=== PATIENT | female | born 1965 | race Caucasian/White ===

== ENCOUNTER → 2017-10-01 | Outpatient (CLI) | payer OTHER ==
[~2017-10-01] MED LIST: ACYCLOVIR; AMBIEN 10 MG TA10 MG PO; AMBIEN 5 MG TABL5 M1 PO; AUGMENTIN 875875 MG PO; BENADRYL25 MG PO; BENTYL 20 MG TA20 M1 PO; CIPRO500 MG PO; CLONAZEPAM; CLONAZEPAM 1 MG1 M1 PO; DELSYM COU30 MG/5 M1 PO; DICLOFENAC SOD50 M1 PO; DOLOPHINE HCL10 MG PO; FLAGYL500 MG PO; HYDROCODON-ACE1 EA11 PO; HYDROCODON-ACE1 EAC7 PO; HYDROCODONE-AP1 EAC6 PO; HYDROXYZINE HCL25 M1; KEFLEX500 MG PO; KLONOPIN0.5 MG PO; LIDODERM 5%1 PATC1 TOP; MACROBID 100 M100 M2 PO; MIRALAX17 G1 PO; MS CONTIN 30 MG30 M1 GT; NORCO 10-325 T1 EACH PO; NORCO 5-325 TA1 EACH PO; ONDANSETRON HCL4 M2 PO; PAXIL10 MG; PERCOCET 5-3251 EACH PO; PERCOCET 7.5-31 EACH PO; PERCOCET PO; PREDNISONE 10 M10 MG PO; PREDNISONE 20 M20 M1 PO; PREDNISONE 20 M20 MG PO; PYRIDIUM200 MG PO; RESTORIL15 MG PO; RESTORIL30 MG PO; ROBAXIN 750 MG750 M1 PO; SEROQUEL 100 M100 MG; SEROQUEL 25 MG25 M1 PO; SEROQUEL 50 MG50 MG PO; TESSALON PERLE100 MG PO; TRAMADOL 50 MG50 MG PO; TYLENOL325 MG PO; VENTOLIN HFA 1818 GM INH; ZANAFLEX4 MG; ZANAFLEX4 MG PO; ZOFRAN ODT4 MG PO; ZOFRAN ODT4 MG SUBLING; ZPAK PO; [UNRECOGNIZED DRUG - OTHER]
== END ==
LOC: M.RAD 16:02
DX: R06.02 Shortness of breath (principal); R07.1 Chest pain on breathing

== ENCOUNTER 2019-03-29 15:00 | Emergency (ER) | payer OTHER ==
[~2019-03-29] VITALS: Ht 165.1 cm; Wt 77.1 kg
[2019-03-29 16:21] VITALS: BP 184/100
== END 2019-03-29 16:21 | disposition home or self-care (01) ==
LOC: M.ERS 15:00
DX: G43.909 Migraine, unspecified, not intractable, without status migrainosus (principal); F32.9 Major depressive disorder, single episode, unspecified; F17.210 Nicotine dependence, cigarettes, uncomplicated; Z87.01 Personal history of pneumonia (recurrent); Z98.890 Other specified postprocedural states; Z88.0 Allergy status to penicillin; Z88.2 Allergy status to sulfonamides; Z88.6 Allergy status to analgesic agent; Z90.5 Acquired absence of kidney; Z90.49 Acquired absence of other specified parts of digestive tract; Z90.710 Acquired absence of both cervix and uterus; Z88.8 Allergy status to other drugs, medicaments and biological substances; Z88.7 Allergy status to serum and vaccine

== ENCOUNTER → 2019-03-31 | Outpatient (CLI) | payer OTHER | LOC: M.CT 16:25 | DX: G95.0 Syringomyelia and syringobulbia (principal); H53.9 Unspecified visual disturbance ==

== ENCOUNTER → 2019-06-05 | Outpatient (CLI) | payer OTHER ==
[~2019-06-05] MED LIST changes: +DORYX MPC120 MG PO; +KEFLEX500 M2 PO; +PREDNISOLONE 5 M5 M1 PO; +QUETIAPINE FUM100 MG PO; +XARELTO15 MG PO
== END ==
LOC: M.RAD 12:57
DX: R05 Cough (principal); R06.00 Dyspnea, unspecified; M25.511 Pain in right shoulder

== ENCOUNTER 2019-06-06 13:29 | Emergency (ER) | payer OTHER ==
[~2019-06-06] VITALS: Ht 165.1 cm; Wt 77.1 kg
[~2019-06-06 13:29] MED LIST changes: -DORYX MPC120 MG PO; -KEFLEX500 M2 PO; -PREDNISOLONE 5 M5 M1 PO; -QUETIAPINE FUM100 MG PO; -XARELTO15 MG PO
[2019-06-06] MEDS ORDERED: QUETIAPINE FUM100 MG PO (13:50)
[2019-06-06] MEDS ORDERED: PREDNISOLONE 5 M5 M1 PO (13:52)
[2019-06-06] MEDS ORDERED: DORYX MPC120 MG PO (13:53)
[2019-06-06 14:37] LABS: HEMOGLOBIN 13.4 gm/dL (12.0-15.0); MCH 33.2 pg (26.0-34.0); MCHC 35.3 g/dL (28.0-37.0); MCV 94.2 fL (80.0-100.0); MPV 9.4 fl. (7.2-11.1); NUCLEATED RBCS 0 /100WBC; PLATELET COUNT* 250 thou/uL (150-400); RBC 4.03 mil/uL (4.20-5.00); RDW-CV 12.4 % (10.5-14.5); WBC 15.9 thou/uL (4.0-11.0)
[2019-06-06 14:47] LABS: CALCIUM 9.1 mg/dL (8.5-10.1); CREATININE 1.4 mg/dL (0.6-1.3); POTASSIUM 3.8 mmol/L (3.5-5.1)
[2019-06-06 14:52] LABS: ALBUMIN 3.4 g/dL (3.4-5.0); TOTAL BILIRUBIN 0.2 mg/dL (<0.1-1.0)
[2019-06-06 14:54] LABS: ABSOLUTE LYMPHOCYTES 1.3 thou/uL (0.8-5.3); ABSOLUTE MONOCYTES 0.3 thou/uL (0.0-1.2); ABSOLUTE NEUTROPHILS 14.3 thou/uL (1.6-8.1); PLATELET ESTIMATE ADEQUATE
[2019-06-06 16:08] LABS: URINE BILIRUBIN NEGATIVE (Negative); URINE BLOOD 3+ (Negative); URINE CLARITY CLEAR; URINE COLOR YELLOW; URINE GLUCOSE-RANDOM NEGATIVE (Negative); URINE KETONES NEGATIVE (Negative); URINE LEUKOCYTES-REFLEX NEGATIVE (Negative); URINE NITRITE-REFLEX POSITIVE (Negative); URINE PROTEIN 2+ (Negative); URINE SPECIFIC GRAVITY 1.015 (1.005-1.030); URINE UROBILINOGEN 0.2 E.U./dl (0.2-1.0)
[2019-06-06 16:17] LABS: SQUAMOUS >10 Many /LPF (0-3)
[2019-06-06 16:18] LABS: BACTERIA-REFLEX >30 Many /HPF (None Seen); MUCUS None Seen strn/LPF (None Seen)
[2019-06-06 16:19] LABS: CRYSTALS None Seen /LPF (None Seen); HYALINE CASTS 0-3 Few /LPF (None Seen); URINE WBC-REFLEX 6-15 Few /HPF (0-5)
[2019-06-06 17:05] LABS: INFLUENZA A ANTIGEN Negative (Negative); INFLUENZA B ANTIGEN Negative (Negative)
[2019-06-06] MEDS ORDERED: XARELTO15 MG PO (20:24)
[2019-06-06] MEDS ORDERED: KEFLEX500 M2 PO (20:29)
[2019-06-06 20:47] LABS: PROTIME 10.3 Seconds (9.20-11.50)
[2019-06-06 21:09] VITALS: BP 188/116
--- NOTE | 2019-06-08 15:03 | EKG ---
[place] [address] ELECTROCARDIOGRAM REPORT Name: RAIZA FENTONYN BARBARA Room: [facility]#: [id number] Admission: 06/06/19 Attend Phys: Discharge: 06/06/19 Date of : 61 Report #: [id number] THIS REPORT FOR: //name// [facility] ED Test Date: 2019-06-06 Test Time: 14:55:03 Pat Name: SATISH FENTON Department: Room: Gender: F Business Development Officer: [facility] : 1965 Requested By: Regina Crump Order Number: [id number] MD: Fran Samuels Measurements Intervals [place] Rate: 94 P: 40 NH: 167 QRS: 52 QRSD: 96 T: 12 QT: 347 QTc: 434 Interpretive Statements Sinus rhythm Borderline T abnormalities, anterior leads Baseline wander in lead(s) V1 Compared to ECG 07/03/2015 14:23:00 no change Electronically Signed On 06-08-2019 15:03:02 METAL BONDING ASSEMBLER by Fran Samuels [email or web address] <ELECTRONICALLY SIGNED> By: Fran Samuels MD, [facility] 06/08/19 1503 1455 1455 Fran Samuels MD, [facility] /EPI
== END 2019-06-06 21:13 | disposition home or self-care (01) ==
LOC: M.ERS 13:29
PROVIDERS: Nurse Practitioner Family
DX: I26.99 Other pulmonary embolism without acute cor pulmonale (principal); M79.662 Pain in left lower leg; M79.661 Pain in right lower leg; N39.0 Urinary tract infection, site not specified; F32.9 Major depressive disorder, single episode, unspecified; F17.210 Nicotine dependence, cigarettes, uncomplicated; Z88.2 Allergy status to sulfonamides; Z88.0 Allergy status to penicillin; Z88.6 Allergy status to analgesic agent; Z88.8 Allergy status to other drugs, medicaments and biological substances; Z90.710 Acquired absence of both cervix and uterus; Z87.01 Personal history of pneumonia (recurrent); Z98.890 Other specified postprocedural states

== ENCOUNTER → 2019-07-02 | Outpatient (CLI) | payer OTHER ==
[~2019-07-02] MED LIST changes: +DORYX MPC120 MG PO; +KEFLEX500 M2 PO; +PREDNISOLONE 5 M5 M1 PO; +QUETIAPINE FUM100 MG PO; +XARELTO15 MG PO
[2019-07-02 11:43] LABS: ABSOLUTE BASOPHILS 0.1 thou/uL (0.0-0.2); ABSOLUTE EOSINOPHILS 0.3 thou/uL (0.0-0.7); ABSOLUTE LYMPHOCYTES 1.3 thou/uL (0.8-5.3); ABSOLUTE MONOCYTES 0.4 thou/uL (0.0-1.2); ABSOLUTE NEUTROPHILS 5.2 thou/uL (1.6-8.1); BASOPHILS 0.8 %; EOSINOPHILS 4.2 %; HEMATOCRIT 37.5 % (37.0-47.0); HEMOGLOBIN 12.9 gm/dL (12.0-15.0); LYMPHOCYTES 17.7 %; MCH 32.9 pg (26.0-34.0); MCHC 34.4 g/dL (28.0-37.0); MCV 95.6 fL (80.0-100.0); MONOCYTES 6.2 %; MPV 8.8 fl. (7.2-11.1); NUCLEATED RBCS 0 /100WBC; PLATELET COUNT* 239 thou/uL (150-400); POLYS 71.1 %; RBC 3.93 mil/uL (4.20-5.00); WBC 7.3 thou/uL (4.0-11.0)
[2019-07-02 11:55] LABS: ALBUMIN 3.3 g/dL (3.4-5.0); CALCIUM 8.8 mg/dL (8.5-10.1); CREATININE 1.5 mg/dL (0.6-1.3); MAGNESIUM 2.1 mg/dL (1.8-2.4); POTASSIUM 4.3 mmol/L (3.5-5.1); TOTAL BILIRUBIN 0.2 mg/dL (<0.1-1.0); TOTAL PROTEIN 6.6 g/dL (6.4-8.2)
== END ==
LOC: M.MRI 11:08 → M.LAB 11:08 → M.MRI 11:30
PROVIDERS: Internal Medicine
DX: E03.9 Hypothyroidism, unspecified (principal); G95.0 Syringomyelia and syringobulbia; G89.4 Chronic pain syndrome; R41.82 Altered mental status, unspecified; Z86.59 Personal history of other mental and behavioral disorders; Z88.0 Allergy status to penicillin; Z88.2 Allergy status to sulfonamides; Z88.8 Allergy status to other drugs, medicaments and biological substances

== ENCOUNTER → 2019-07-07 | Outpatient (CLI) | payer OTHER ==
--- NOTE | 2019-07-07 13:29 | 2DMMODE ---
[place] [address] 2 D/M-MODE ECHOCARDIOGRAM Name: FENTONSATISH Room: [facility]#: [id number] Admission: 07/07/19 Attend Phys: Fran Kelly, Discharge: Date of : 61 Date of Service: 07/07/19 1328 Report #: [id number] THIS REPORT FOR: //name// APPROVED REPORT Study performed: 07/07/2019 07:57:31 EXAM: Comprehensive 2D, Doppler, and color-flow Echocardiogram Patient Location: Out-Patient BSA: 1.91 HR: 93 bpm BP: 125/82 mmHg Other Information Study Quality: Good Indications Dyspnea Palpitations 2D Dimensions IVSd: 11.10 (7-11mm) LVOT Diam: 20.20 (18-24mm) LVDd: 40.24 mm PWd: 9.87 (7-11mm) Ascending Ao: 30.05 (22-36mm) LVDs: 20.32 (25-40mm) Aortic Root: 22.77 mm Volumes Left Atrial Volume (Systole) LA ESV Index: 12.30 mL/m2 Aortic Valve AoV Peak Donovan.: 1.36 m/s AO Peak Gr.: 7.36 mmHg LVOT Max P.99 mmHg AO Mean Gr.: 3.46 mmHg LVOT Mean P.45 mmHg LVOT Max V: 1.22 m/s AO V2 VTI: 21.27 cm LVOT Mean V: 0.69 m/s PATTI (VTI): 3.29 cm2 LVOT V1 VTI: 21.84 cm Mitral Valve E/A Ratio: 0.76 MV Decel. Time: 167.83 ms MV E Max Donovan.: 0.56 m/s MV PHT: 48.67 [place] [address] 2 D/M-MODE ECHOCARDIOGRAM Name: SATISH FENTON Room: [facility]#: [id number] Admission: 07/07/19 Attend Phys: Fran Kelly, Discharge: Date of : 61 Date of Service: 07/07/19 1328 Report #: [id number] MVA (PHT): 4.52 cm2 TDI E/Lateral E': 6.22 E/Medial E': 8.00 Medial E' Donovan.: 0.07 m/s Lateral E' Donovan.: 0.09 m/s Pulmonary Valve PV Peak Donovan.: 0.92 m/s PV Peak Gr.: 3.36 mmHg Tricuspid Valve RAP Estimate: 5.00 mmHg TR Peak Gr.: 18.30 mmHg RVSP: 23.30 mmHg PA Pressure: 23.30 mmHg Left Ventricle The left ventricle is normal size. There is normal LV segmental wall motion. There is normal left ventricular wall thickness. Left ventricular systolic function is vigorous. LVEF is >70%. Grade I - abnormal relaxation pattern. Right Ventricle The right ventricle is normal size. The right ventricular systolic function is normal. Atria The left atrium size is normal. The right atrium size is normal. Aortic Valve The aortic valve is normal in structure. No aortic regurgitation is present. There is no aortic valvular stenosis. Mitral Valve The mitral valve is normal in structure. There is no mitral valve regurgitation noted. No evidence of mitral valve stenosis. Tricuspid Valve The tricuspid valve is normal in structure. Trace to mild tricuspid regurgitation. No pulmonary hypertension. Pulmonic Valve The pulmonary valve is normal in structure. There is no pulmonic valvular regurgitation[place] [address] 2 D/M-MODE ECHOCARDIOGRAM Name: SATISH FENTON BARBARA Room: [facility]#: [id number] Admission: 07/07/19 Attend Phys: Fran Kelly, Discharge: Date of : 61 Date of Service: 07/07/19 1328 Report #: [id number] The aortic root is normal in size. IVC is normal in size and collapses >50% with inspiration. Pericardium There is no pericardial effusion. <Conclusion> Normal echocardiogram. The left ventricle is normal size. There is normal left ventricular wall thickness. Left ventricular systolic function is vigorous. LVEF is >70%. Grade I - abnormal relaxation pattern. Trace to mild tricuspid regurgitation. No pulmonary hypertension. IVC is normal in size and collapses >50% with inspiration. <ELECTRONICALLY SIGNED> By: Michael Stokes MD, FACC 07/07/19 1328 1328 Michael Stokes MD, FACC /INF
== END ==
LOC: M.CRD 07:37 → M.CT 08:00
DX: I36.1 Nonrheumatic tricuspid (valve) insufficiency (principal); K42.9 Umbilical hernia without obstruction or gangrene; G89.4 Chronic pain syndrome; E03.9 Hypothyroidism, unspecified; I25.10 Atherosclerotic heart disease of native coronary artery without angina pectoris; M25.78 Osteophyte, vertebrae; Z90.49 Acquired absence of other specified parts of digestive tract; Z88.8 Allergy status to other drugs, medicaments and biological substances; Z88.2 Allergy status to sulfonamides

== ENCOUNTER → 2019-08-26 | Outpatient (CLI) | payer OTHER ==
--- NOTE | 2019-08-26 17:00 | CARDNUC ---
[place] [address] CARDIAC NUCLEAR IMAGING REPORT Name: JOSSYSATISH BARBARA Room: [facility]#: [id number] Admission: 08/26/19 Attend Phys: Fran Kelly, Discharge: Date of : 61 Date of Service: 08/26/19 1659 Report #: [id number] THIS REPORT FOR: //name// APPROVED REPORT Imaging Protocol: Rest Tc-99m/Stress Tc-99m 1 day Study performed: 08/26/2019 12:15:00 Indication: Chest pain, Palpitations Patient Location: Out-Patient Stress Tech: Onelia Fritz Stress Nurse: Nancy Baptiste RN NM Tech:NANY Laurent Ht: 5 ft 5 in Wt: 180 lbs BSA: 1.89 m2 BMI: 29.95 Medical History Medical History: Stroke/TIA, HTN, CAD s/p LA Medications: amlodipine, clonidine, losartan, xarelto Allergies: xanax, carbamazepine, influenza vaccine, chlorpromazine, haldol, valproic acid, lithium, resporal, steroids, penicillin, prednisone, pregablin, sulfa Cardiac Risk Factors: age, htn, former smoker, Exercise History: Physically active Resting Data Rest SPECT myocardial perfusion imaging was performed in supine position 30 minutes following the intravenous injection of 11.2 mCi of Tc-99m Sestamibi. Time of rest injection: 1300 Date: 08/26/2019 The images were gated to evaluate regional wall motion and calculate left ventricular ejection fraction. Administration Route: IV Administration Site: Right Arm Pharmacologic Stress Pharmacologic stress test was performed by injecting Regadenoson 0.4 mg IV push over 10-15 seconds immediately followed by the intravenous injection of 33.5 mCi of Tc-99m Sestamibi. Time of stress injection: 1410 Date: 08/26/2019 Administration Route: IV Administration Site: Right Arm Gated Stress SPECT was performed 40 minutes [place] [address] CARDIAC NUCLEAR IMAGING REPORT Name: SATISH FENTON Room: [facility]#: [id number] Admission: 08/26/19 Attend Phys: Fran Kelly, Discharge: Date of : 61 Date of Service: 08/26/19 1659 Report #: [id number] The images were gated to evaluate regional wall motion and calculate left ventricular ejection fraction. Prone imaging was performed. Stress Test Details Stress Test: Pharmacologic stress testing performed using 0.4 mg of regadenoson per 5 mL given IV over 10 seconds. Reason for pharmacologic stress test: physical limitation. HR Max Heart Rate (APMHR): 164 bpm Resting HR: 101 bpm Target HR (85% APMHR): 139 bpm Max HR Achieved: 120 bpm % of APMHR: 73 Recovery HR: 115 bpm BP Resting BP: 165/112 mmHg Max BP: 154/81 mmHg Recovery BP: 163/87 mmHg ECG Resting ECG: Sinus Rhythm Stress ECG: Sinus Tachycardia ST Change: None Arrhythmia: None Recovery ECG: Sinus Rhythm Recovery ST Change: None Recovery Arrhythmia: None Clinical Reason for Termination: Completed protocol Exercise duration: 0 min sec Exercise capacity: 1 METs The patient tolerated Lexiscan infusion without significant cardiac symptoms. Nurse Comments pt too unsteady on feet to walk treadmill Stress ECG Conclusion Baseline 12-lead EKG shows sinus rhythm without significant ST segment abnormality. EKGs during and post Lexiscan infusion showed sinus rhythm and sinus tachycardia withST segment changes when compared to baseline. There were no significant stress-induced [place] [address] CARDIAC NUCLEAR IMAGING REPORT Name: SATISH FENTON BARBARA Room: [facility]#: [id number] Admission: 08/26/19 Attend Phys: Fran Kelly, Discharge: Date of : 61 Date of Service: 08/26/19 1659 Report #: [id number] Study: Good Artifact: No artifact Study Data At rest, the left ventricular ejection fraction was 75%.. Post stress, the left ventricular ejection was 81%.. TID = 1.04. Perfusion Normal left ventricular perfusion. Wall Motion Normal left ventricular wall motion. Nuclear Conclusion ECG Findings: negative for ischemia Clinical Findings: negative for ischemia Nuclear Findings: negative for ischemia Exercise Capacity: not assessed Left Ventricular Function: normal Risk Study: low Myocardial perfusion images obtained at rest and post Lasix Infusion show uniform uptake of the radioisotope throughout the myocardium without defect. Global LV systolic function normal on gated studies. This is a low risk study. <Conclusion> Baseline 12-lead EKG shows sinus rhythm without significant ST segment abnormality. EKGs during and post Lexiscan infusion showed sinus rhythm and sinus tachycardia withST segment changes when compared to baseline. There were no significant stress-induced arrhythmias. <ELECTRONICALLY SIGNED> By: Michael Stokes MD, FACC 08/26/191658 58 58 Michael Stokes MD, FACC /INF
== END ==
LOC: M.NUC 08-03 10:17 → M.CRD 08-14 13:00 → M.NUC 12:16
DX: R07.89 Other chest pain (principal); I10 Essential (primary) hypertension; I25.2 Old myocardial infarction; Z79.899 Other long term (current) drug therapy

== ENCOUNTER → 2019-10-13 | Outpatient (CLI) | payer OTHER | LOC: M.ULTRA 08:48 | DX: I10 Essential (primary) hypertension (principal); Z88.0 Allergy status to penicillin; Z88.2 Allergy status to sulfonamides; Z88.5 Allergy status to narcotic agent; Z88.8 Allergy status to other drugs, medicaments and biological substances; Z90.5 Acquired absence of kidney ==

== ENCOUNTER 2019-11-15 15:56 | Observation (INO) | payer OTHER ==
[~2019-11-15] VITALS: Ht 165.1 cm; Wt 84.8 kg
[2019-11-15 15:59] VITALS: BP 141/78
[2019-11-15] MEDS ORDERED: CLONIDINE HCL0.2 M2 PO (16:05)
[2019-11-15] MEDS ORDERED: COZAAR 50 MG TA50 M1 PO (16:05)
[2019-11-15 16:32] LABS: ABSOLUTE BASOPHILS 0.1 thou/uL (0.0-0.2); ABSOLUTE EOSINOPHILS 0.2 thou/uL (0.0-0.7); ABSOLUTE LYMPHOCYTES 1.5 thou/uL (0.8-5.3); ABSOLUTE MONOCYTES 0.4 thou/uL (0.0-1.2); ABSOLUTE NEUTROPHILS 4.2 thou/uL (1.6-8.1); BASOPHILS 1.2 %; EOSINOPHILS 2.4 %; HEMOGLOBIN 10.9 gm/dL (12.0-15.0); LYMPHOCYTES 23.6 %; MCH 33.4 pg (26.0-34.0); MCV 95.5 fL (80.0-100.0); MONOCYTES 6.6 %; MPV 8.8 fl. (7.2-11.1); NUCLEATED RBCS 0 /100WBC; PLATELET COUNT* 253 thou/uL (150-400); POLYS 66.2 %; RBC 3.25 mil/uL (4.20-5.00); RDW-CV 13.4 % (10.5-14.5); WBC 6.4 thou/uL (4.0-11.0)
[2019-11-15 16:39] LABS: CALCIUM 8.9 mg/dL (8.5-10.1); CREATININE 2.2 mg/dL (0.6-1.3); POTASSIUM 3.6 mmol/L (3.5-5.1)
[2019-11-15 16:49] LABS: ALBUMIN 3.7 g/dL (3.4-5.0); MAGNESIUM 2.3 mg/dL (1.8-2.4); TOTAL BILIRUBIN 0.2 mg/dL (<0.1-1.0); TOTAL PROTEIN 7.4 g/dL (6.4-8.2)
[2019-11-15] MEDS ORDERED: XARELTO20 MG PO (18:29)
[2019-11-15] MEDS ORDERED: XANAX1 MG PO (18:30)
[2019-11-15 18:31] VITALS: BP 129/75
--- NOTE | 2019-11-15 18:35 | NUR ---
RECEIEVIED REPORT FROM BRIANNA RN IN ER AT 1752 OF EXPECTED ADMISSIO- DX: CHEST HEAVINESS, BILT LEG WEAKNESS, DIZZY- PT ARRIVE TO UNIT RM 214 VIA CART WITH SBA TO BED AT 1804- ELECTRIC CRANE OPERATOR PLACED ORDERED, TRACING SR- PT A&O X4- CONT OF BOWEL AND BLADDER- SBA WITH TRANSFERS FOR SAFETY- VS 98.4 20 129/75 75 93% ON RA- DIMINISHED LUNG SOUNDS, DYSPNEA REPORTED ON EXERTION- ABD SOFT/ROUND/NON-TENDER, BS X4 QUADS- LAST BM REPORTED THIS AM- IV NOTED TO LEFT AC INTACT AND SL- PT DENIES ANY OPEN AREAS/SOARS AT TIME OF ADMISSION-ER REPORTS TO HAVE GIVEN NITRO, WITH PT NOW REPORTIG HEADACHE AT TIME OF ADMISSION- CALL LIGHT AND PERSONAL BELONGINGS WITH IN REACH- ALL NEEDS MET AT THIS TIME-WCTM
[2019-11-15 18:40] VITALS: BP 112/70
[2019-11-16] VITALS: BP 140/60
[2019-11-16 04:31] VITALS: BP 118/69
[2019-11-16 07:43] LABS: ABSOLUTE EOSINOPHILS 0.1 thou/uL (0.0-0.7); ABSOLUTE LYMPHOCYTES 1.3 thou/uL (0.8-5.3); ABSOLUTE MONOCYTES 0.4 thou/uL (0.0-1.2); ABSOLUTE NEUTROPHILS 2.4 thou/uL (1.6-8.1); EOSINOPHILS 3.1 %; HEMATOCRIT 29.6 % (37.0-47.0); HEMOGLOBIN 10.1 gm/dL (12.0-15.0); LYMPHOCYTES 31.1 %; MCH 32.7 pg (26.0-34.0); MCHC 34.1 g/dL (28.0-37.0); MCV 95.7 fL (80.0-100.0); MONOCYTES 9.3 %; MPV 8.5 fl. (7.2-11.1); NUCLEATED RBCS 0 /100WBC; PLATELET COUNT* 248 thou/uL (150-400); POLYS 55.5 %; RDW-CV 13.6 % (10.5-14.5); WBC 4.3 thou/uL (4.0-11.0)
[2019-11-16 07:55] LABS: CALCIUM 8.7 mg/dL (8.5-10.1); CREATININE 1.9 mg/dL (0.6-1.3); POTASSIUM 4.1 mmol/L (3.5-5.1)
[2019-11-16 08:00] VITALS: BP 125/76
--- NOTE | 2019-11-16 09:42 | EKG ---
[place] [address] ELECTROCARDIOGRAM REPORT Name: SATISH FENTON Room: [address] ADM IN .R.#: [id number] Admission: 11/15/19 Attend Phys: Sushil Hernandez, Discharge: Date of : 61 Date of Service: 11/15/19 1600 Report #: [id number] THIS REPORT FOR: //name// [facility] ED Test Date: 2019-11-15 Test Time: 16:00:47 Pat Name: SATISH FENTON Department: Room: [facility] Gender: F Real Estate Recruiter: VLADIMIR : 1965 Requested By: Antonio Dunlap Order Number: [id number] MD: Fran Samuels Measurements Intervals [place] Rate: 84 P: 61 CT: 178 QRS: 57 QRSD: 85 T: 40 QT: 358 QTc: 424 Interpretive Statements Sinus rhythm Borderline T abnormalities, anterior leads Compared to ECG 06/06/2019 14:55:03 No significant changes Electronically Signed On 11-16-2019 9:40:40 CDT by Fran Samuels [email or web address] <ELECTRONICALLY SIGNED> By: Fran Samuels MD, FACC 11/16/19 0940 1600 1600 Fran Samuels MD, FAC /EPI
--- NOTE | 2019-11-16 09:42 | EKG ---
[place] [address] ELECTROCARDIOGRAM REPORT Name: SATISH FENTON Room: [address] ADM IN .R.#: [id number] Admission: 11/15/19 Attend Phys: Sushil Hernandez, Discharge: Date of : 61 Date of Service: 11/16/19 0522 Report #: [id number] THIS REPORT FOR: //name// [facility] Test Date: 2019-11-16 Test Time: 05:22:53 Pat Name: SATISH FENTON Department: Room: [address] Gender: F Machine Technician: CAREN : 1965 Requested By: Carmelo Montez Order Number: [id number] MD: Fran Samuels Measurements Intervals [place] Rate: 64 P: 45 [place]: 182 QRS: 46 QRSD: 108 T: 47 QT: 419 QTc: 433 Interpretive Statements Sinus rhythm Nonspecific T abnormalities, anterior leads Electronically Signed On 11-16-2019 9:41:03 CDT by Fran Samuels [email or web address] <ELECTRONICALLY SIGNED> By: Fran Samuels MD, [facility] 11/16/19 09 1 1 Fran Samuels MD, [facility] /EPI
[2019-11-16 09:47] VITALS: BP 125/76
--- NOTE | 2019-11-16 10:17 | NUR ---
PATIENT GIVEN D/C INSTRUCTIONS. VITALS STABLE. ALL QUESTIONS ANSWERED. BELONGINGS PACKED AND WILL D/C TO HOME WITH MOTHER. NO PRESCRIPTIONS GIVEN THIS ADMSSION.
--- NOTE | 2019-11-16 17:26 | CON ---
[address] [address] CONSULTATION Name: SATISH FENTON Room: [address] Aristeo Pittman#: [id number] Admission: 11/15/19 Attend Phys: Sushil Hernandez MD Discharge: 11/16/19 Date of : 61 Report #: [id number] THIS REPORT FOR: //name// cc: Fran Kelly MD, David L. MD ~ THIS REPORT FOR: //name// CC: Sushil Kelly MD DATE OF SERVICE: 11/16/2019 CARDIOLOGY CONSULTATION HISTORY OF PRESENT ILLNESS: The patient is a 54-year-old single white female who came to the Emergency Room yesterday complaining of chest pain. The patient has had multiple visits to the Emergency Room here at [place]. She has no history of heart disease. She actually had EGD and colonoscopy in 2013 because of abdominal pain and was found to have gastritis, colon polyp. She does not exercise on a regular basis. She came to the Emergency Room yesterday complaining of chest heaviness and weakness of her legs. The pain radiating to her back. It was not related to exertion or meals. She has had no bleeding. She denied the pain radiating to her arms. She did feel short of breath. She notes occasional episodes when her heart will skip but she has had no recent syncope. PAST MEDICAL HISTORY: Otherwise significant for hysterectomy. 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 She has a history of hypertension. She has a history of manic depressive illness and is followed by psychiatrist. MEDICATIONS: On admission consisted of Restoril, Seroquel, clonidine, losartan. ALLERGIES: SHE HAS AN ALLERGY TO LITHIUM, PENICILLIN, HALDOL, SULFA, TRAMADOL. FAMILY HISTORY: Her mother had AFib. SOCIAL HISTORY: She is . She is on disability because of mental illness, lives by herself in [place], although her mom lives nearby. No smoking, alcohol abuse or illicit drug use. REVIEW OF SYSTEMS: She has had no history of stroke or liver disease. She does have chronic kidney disease. No cancer. No skin problems. PHYSICAL EXAMINATION: [place] [address] CONSULTATION Name: SATISH FENTON Room: [address] Aristeo Pittman#: [id number] Admission: 11/15/19 Attend Phys: Sushil Hernandez MD Discharge: 11/16/19 Date of : 61 Report #: [id number] GENERAL: Revealed a middle-aged female lying in bed. She appeared in no distress. VITAL SIGNS: She had a blood pressure of 118/70, pulse 70. She is afebrile. HEENT: She was anicteric. Conjunctivae are pink. Mucous membranes moist. NECK: Veins nondistended. No carotid bruits. CHEST: Clear to auscultation. CARDIOVASCULAR: Regular rate and rhythm without murmur. ABDOMEN: Soft. EXTREMITIES: Had no edema. Posterior pulse 1+. SKIN: Cool and dry. NEUROLOGIC: Nonfocal. DIAGNOSTIC DATA: Her ECG on admission showed a sinus rhythm, nonspecific ST-segment changes. Her workup in the Emergency Room yesterday, she had portable chest x-ray that showed normal heart size and clear lung kim. She had a CT scan of the head last March that was unremarkable. She had a CT scan of the chest using a PE protocol last June that showed previous small emboli that then resolved, some atelectasis. She had previous echocardiogram last June that showed ejection fraction 70%. She had a nuclear stress test in July of this year using Lexiscan that showed ejection fraction of 70% with no evidence of ischemia. She had a Holter monitor in August of this year that showed episodes of sinus rhythm, sinus bradycardia, sinus tachycardia, occasional PVCs, occasional PACs, no atrial fibrillation. LABORATORY DATA: Sodium 143, potassium 4.1, creatinine 1.9. Her liver function studies were normal. Troponin 0.06. BNP 169. Her white blood cell count 4.3 and hematocrit 29.6. IMPRESSION AND RECOMMENDATIONS: 1. Chest pain. Suspect noncardiac. Recommend no further cardiac evaluation. 2. Palpitations. Previous monitor showed no significant arrhythmia. Recommend no further cardiac evaluation. 3. Hypertension. The patient is on ARB. 4. Chronic kidney disease. 5. Anemia. Previous GI workup showed no bleeding. 6. History of manic depressive illness. <ELECTRONICALLY SIGNED> By: Fran Samuels MD, [facility] 11/16/19 1726 0822 [id number] Samuels MD, [facility] /nt
== END 2019-11-16 10:30 | disposition home or self-care (01) ==
LOC: M.ERS 15:56 → M.2W 17:04 → M.TBA-ER 17:04 → M.2W 18:18
PROVIDERS: Emergency Medicine Emergency Medical Services; ADMIT Internal Medicine
DX: R07.89 Other chest pain (principal); I12.9 Hypertensive chronic kidney disease with stage 1 through stage 4 chronic kidney disease, or unspecified chronic kidney disease; R00.2 Palpitations; N18.9 Chronic kidney disease, unspecified; F32.9 Major depressive disorder, single episode, unspecified; F41.9 Anxiety disorder, unspecified; R42 Dizziness and giddiness; D64.9 Anemia, unspecified; Z86.711 Personal history of pulmonary embolism; Z79.01 Long term (current) use of anticoagulants

== ENCOUNTER 2019-12-17 13:32 | Inpatient (IN) | payer OTHER ==
[~2019-12-17] VITALS: Ht 167.6 cm; Wt 78.5 kg
--- NOTE | ~2019-12-17 | PROC ---
[address] [address] PROCEDURE REPORT Name: SATISH FENTON Room: [address] IN .R.#: [id number] Admission: 12/17/19 Attend Phys: Kristin Llanos Discharge: 12/21/19 Date of : 61 Report #: [id number] THIS REPORT FOR: //name// cc: Fran Kelly MD, David L. MD ~ THIS REPORT FOR: //name// For GI report, please see the Provation report in Perceptive 7 content. By: 0651Medical Records Staff DOMINIK /JESSIE
--- NOTE | ~2019-12-17 | CON ---
[address] [address] CONSULTATION Name: SATISH FENTON Room: [address] IN M.R.#: [id number] Admission: 12/17/19 Attend Phys: Kristin Llanos Discharge: Date of : 61 Report #: [id number] THIS REPORT FOR: //name// cc: Fran Kelly MD, David L. MD ~ THIS REPORT FOR: //name// CC: Fran Simpson DATE OF SERVICE: 12/18/2019 NEPHROLOGY CONSULTATION CONSULTING PHYSICIAN: Flakito Simpson D.O. REASON FOR NEPHROLOGY CONSULTATION: Acute kidney injury on chronic kidney disease stage 3. REASON FOR ADMISSION: Abnormal hemoglobin, low hemoglobin. HISTORY OF PRESENT ILLNESS: This is a 54-year-old female with past medical history of chronic kidney disease stage 3 with baseline creatinine more so around 1.5-1.7, but it has been 1.9 and 2 before, she sees Dr. Mccollum and her outpatient hemoglobin was checked on 12/14, it was 6.9 and hence she was asked to come to the hospital for further evaluation. When she came in over here, her hemoglobin was 7.8. She did receive a unit of blood. GI is to evaluate her today. Hemoglobin was 10.1 in October, so that is a significant drop for her. She denied any overt bleeding or black stools. Her creatinine was 1.7 on 12/14 and 2.0 yesterday. She is on Cozaar 50 mg a day. She does not have any acute complaints right now. REVIEW OF SYSTEMS: As mentioned in history of present illness, otherwise, 10-point review of systems are negative. ALLERGIES: SULFADIAZINE, PENICILLIN V, CARBAMAZEPINE, CHLORPROMAZINE, FLU VACCINE, HALDOL, LITHIUM, PREDNISONE, PREGABALIN, AND BOWEL PREPARATION. PAST MEDICAL HISTORY: Includes UTIs; chronic kidney disease stage 3, baseline creatinine 1.5-1.7; anxiety; pulmonary embolus; PTSD; bipolar disorder; schizophrenia; and depression. MEDICATION HISTORY: She is on quetiapine, Xarelto, losartan 50 mg a day, levothyroxine, temazepam, tizanidine, and albuterol. FAMILY HISTORY: Reviewed, not contributory [place] [address] CONSULTATION Name: SATISH FENTON Room: [address]#: [id number] Admission: 12/17/19 Attend Phys: Kristin Llanos Discharge: Date of : 61 Report #: [id number]. 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 PHYSICAL EXAMINATION: VITAL SIGNS: Her blood pressure is 103/60, respiratory rate is 18, pulse rate is 71, temperature 36.9, and pulse ox is 96% on room air. GENERAL: She is awake, alert, oriented x 3. HEAD AND EYES: Atraumatic, normocephalic. EARS, NOSE, AND THROAT: Normal ears and nose. Mucous membranes are moist. NECK: No JVD. CHEST: Bilaterally clear to auscultation. No crackles or wheezing. CARDIOVASCULAR: S1, S2 normal. No murmurs. ABDOMEN: Soft, nondistended, nontender. Bowel sounds are present. EXTREMITIES: Lower extremities, there is no lower extremity edema. NEUROLOGIC: Grossly intact. PSYCHIATRIC: Mood and affect seem to be normal. LABORATORY DATA: Hemoglobin 7.8, WBC 7.0, platelet count is 317. Sodium is 142, potassium is 3.9, BUN is 17, creatinine is 2.0, and other labs are reviewed. IMAGING: Chest x-ray was reviewed. ASSESSMENT: 1. Acute kidney injury on chronic kidney disease stage 3; creatinine is slightly higher from baseline, it was 1.7 on 12/14; blood pressure is slightly towards the lower side and she is on Cozaar. UA showed 2+ protein and 3+ blood, but did look like a contaminated specimen, should be repeated as an outpatient. Urine culture is being checked by primary. There is no need for renal ultrasound right now. 2. Anemia, acute on chronic anemia, hemoglobin 10.1 in October and 7.8, now being evaluated by GI. 3. History of hypertension. Blood pressure is running slightly towards the lower side. 4. History of bipolar disease. 5. History of schizophrenia. PLAN: 1. We will decrease her Cozaar to 25 mg a day because of blood pressure is running towards the lower side and please hold for systolic blood pressure of less than 110. 2. Check BMP today as well as in the morning. 3. I have ordered iron, TIBC, and ferritin. [address] [place] [address] CONSULTATION Name: SATISH FENTON Room: [address] IN .R.#: [id number] Admission: 12/17/19 Attend Phys: Kristin Llanos Discharge: Date of : 61 Report #: [id number] 4. Further anemia management as per GI and primary team. 5. I's and O's. Thank you for this consultation. We will continue to follow with you. Discussed with the patient and the patient's nurse. By: [id number] Braxton MD /nt
[~2019-12-17 13:32] MED LIST changes: +CLONIDINE HCL0.2 M2 PO; +COZAAR 50 MG TA50 M1 PO; +XANAX1 MG PO; +XARELTO20 MG PO
[2019-12-17 13:40] VITALS: BP 205/93
[2019-12-17 14:03] LABS: ABSOLUTE EOSINOPHILS 0.1 thou/uL (0.0-0.7); ABSOLUTE LYMPHOCYTES 1.5 thou/uL (0.8-5.3); ABSOLUTE MONOCYTES 0.4 thou/uL (0.0-1.2); ABSOLUTE NEUTROPHILS 4.9 thou/uL (1.6-8.1); BASOPHILS 0.7 %; EOSINOPHILS 1.5 %; HEMATOCRIT 22.6 % (37.0-47.0); HEMOGLOBIN 7.8 gm/dL (12.0-15.0); LYMPHOCYTES 20.9 %; MCH 34.5 pg (26.0-34.0); MCHC 34.8 g/dL (28.0-37.0); MCV 99.3 fL (80.0-100.0); MONOCYTES 6.1 %; MPV 7.6 fl. (7.2-11.1); NUCLEATED RBCS 0 /100WBC; PLATELET COUNT* 317 thou/uL (150-400); POLYS 70.8 %; RBC 2.27 mil/uL (4.20-5.00); RDW-CV 14.8 % (10.5-14.5)
[2019-12-17 14:08] LABS: CALCIUM 8.4 mg/dL (8.5-10.1); POTASSIUM 3.9 mmol/L (3.5-5.1)
[2019-12-17 14:11] LABS: APTT 27.5 Seconds (25.0-31.3); PROTIME 10.7 Seconds (9.20-11.50)
[2019-12-17 14:13] LABS: ALBUMIN 3.6 g/dL (3.4-5.0); TOTAL BILIRUBIN 0.2 mg/dL (<0.1-1.0)
[2019-12-17 14:26] LABS: URINE BILIRUBIN NEGATIVE (Negative); URINE BLOOD 3+ (Negative); URINE CLARITY CLEAR; URINE COLOR YELLOW; URINE GLUCOSE-RANDOM NEGATIVE (Negative); URINE KETONES NEGATIVE (Negative); URINE LEUKOCYTES-REFLEX 1+ (Negative); URINE PROTEIN 2+ (Negative); URINE UROBILINOGEN 0.2 E.U./dl (0.2-1.0)
[2019-12-17 14:27] LABS: URINE NITRITE-REFLEX POSITIVE (Negative)
[2019-12-17 14:33] LABS: SQUAMOUS >10 Many /LPF (0-3); URINE WBC-REFLEX >25 Many /HPF (0-5)
[2019-12-17 14:34] LABS: BACTERIA-REFLEX >30 Many /HPF (None Seen); CASTS None Seen /LPF (None Seen); CRYSTALS None Seen /LPF (None Seen)
--- NOTE | 2019-12-17 16:59 | EKG ---
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: DSL : 1965 Requested By: Sotero Tian Order Number: [id number] MD: Michael Stokes Measurements Intervals [place] Rate: 95 P: 56 NH: 148 QRS: 66 QRSD: 86 T: 65 QT: 341 QTc: 429 Interpretive Statements Sinus rhythm Borderline T abnormalities, anterior leads Compared to ECG 11/16/2019 05:22:53 No significant changes Electronically Signed On 12-17-2019 16:57:27 CDT by Michael Stokes [email or web address] <ELECTRONICALLY SIGNED> By: Michael Stokes MD, FACC 12/17/19 1657 1359 1359 Michael Stokes MD, [facility] /EPI
[2019-12-17 17:23] VITALS: BP 121/65
[2019-12-17 17:30] VITALS: BP 146/88
[2019-12-17 17:56] VITALS: BP 148/79; BP 155/78; BP 157/91; BP 160/96; BP 161/88
--- NOTE | 2019-12-17 19:00 | NUR ---
54 Y/O FEMALE ADMITTED TO 103 FOR ANEMIA AND UTI @1715. SEE ASSESSMENT. A/OX4, PATIENT DENIES PAIN. BLOOD INFUSING TEACHING DONE. PATIENT ORIENTED TO AND POC. BLOOD INFUSION INITIATED. SEE FLOW CHART. IV SITE WNL. PATIENT RESTING IN BED, DENIES NURSING NEEDS AT THIS TIME. TV ON. HRLY ROUNDS DONE. ~TJRN
[2019-12-17 19:40] VITALS: BP 160/96
[2019-12-17 22:00] VITALS: BP 154/89
[2019-12-18] VITALS: BP 154/79
[2019-12-18 04:00] VITALS: BP 103/68
--- NOTE | 2019-12-18 06:35 | NUR ---
Alert and oriented x 4. She recieved 1 unit of PRBC's last evening. Vitals have been stable all of this shift. Home meds were ordered. This am labs were ordered. Consults to nephrology were called,Dr Braxton returned call. Consult to GI was called to answering service, Laurita taking call today.
[2019-12-18 07:55] VITALS: BP 124/77
[2019-12-18 09:53] LABS: ABSOLUTE EOSINOPHILS 0.1 thou/uL (0.0-0.7); ABSOLUTE LYMPHOCYTES 1.2 thou/uL (0.8-5.3); ABSOLUTE MONOCYTES 0.3 thou/uL (0.0-1.2); ABSOLUTE NEUTROPHILS 4.1 thou/uL (1.6-8.1); BASOPHILS 0.7 %; EOSINOPHILS 1.8 %; HEMATOCRIT 24.6 % (37.0-47.0); HEMOGLOBIN 8.5 gm/dL (12.0-15.0); LYMPHOCYTES 20.7 %; MCHC 34.4 g/dL (28.0-37.0); MCV 95.9 fL (80.0-100.0); MONOCYTES 5.8 %; MPV 7.7 fl. (7.2-11.1); NUCLEATED RBCS 0 /100WBC; PLATELET COUNT* 258 thou/uL (150-400); RBC 2.57 mil/uL (4.20-5.00); RDW-CV 16.7 % (10.5-14.5); WBC 5.8 thou/uL (4.0-11.0)
[2019-12-18 10:01] LABS: CALCIUM 8.4 mg/dL (8.5-10.1); CREATININE 1.8 mg/dL (0.6-1.3); POTASSIUM 3.9 mmol/L (3.5-5.1)
[2019-12-18 10:29] LABS: % SATURATION 32 % (20-39); IRON 99 ug/dL (50-175)
[2019-12-18 16:00] VITALS: BP 144/62
--- NOTE | 2019-12-18 16:51 | NUR ---
PT.LIVES IN [place] HER MOM. SHE IS INDEPENDENT. DOES NOT USE ANY DME. NO HX OF HH OR SNF. NO DISCHARGE NEEDS IDENTIFIED.
--- NOTE | 2019-12-18 18:40 | NUR ---
PT A&OX3 VSS. IV TO L HAND PATENT. DRESSING C/D/I. PT UP AD ROBERTH, GAIT STEADY. GI AND HEM/ONC CONSULTED. PT TO BE ON CLEARN LIQUIDS SAT, EGD/COLONOSCOPY TO BE DONE SATURDAY PER DR DEL REAL. IV ABX TO TREAT UTI. PT DENIES N/V/D. NO C/O PAIN. PT RESTING IN ROOM WITH CALL LIGHT IN REACH. WILL CONTINUE TO MONITOR.
[2019-12-18 20:00] VITALS: BP 153/89
--- NOTE | 2019-12-19 04:13 | NUR ---
PT A&O, VSS ON RA. NO C/O PAIN. MEDS GIVEN ORDERED. PT SLEEPING/RESTING QUIETLY THROUGH THE NIGHT. WILL CONTINUE TO MONITOR.
[2019-12-19 04:55] LABS: ABSOLUTE EOSINOPHILS 0.1 thou/uL (0.0-0.7); ABSOLUTE LYMPHOCYTES 1.4 thou/uL (0.8-5.3); ABSOLUTE MONOCYTES 0.3 thou/uL (0.0-1.2); ABSOLUTE NEUTROPHILS 3.1 thou/uL (1.6-8.1); BASOPHILS 0.5 %; EOSINOPHILS 2.1 %; HEMATOCRIT 24.1 % (37.0-47.0); HEMOGLOBIN 8.4 gm/dL (12.0-15.0); LYMPHOCYTES 29.1 %; MCH 33.6 pg (26.0-34.0); MCHC 34.9 g/dL (28.0-37.0); MCV 96.3 fL (80.0-100.0); MONOCYTES 6.3 %; MPV 8.5 fl. (7.2-11.1); NUCLEATED RBCS 0 /100WBC; PLATELET COUNT* 260 thou/uL (150-400)
[2019-12-19 05:22] LABS: CALCIUM 8.2 mg/dL (8.5-10.1); CREATININE 1.7 mg/dL (0.6-1.3); POTASSIUM 3.7 mmol/L (3.5-5.1); TOTAL BILIRUBIN 0.2 mg/dL (<0.1-1.0)
[2019-12-19 06:01] LABS: ESR (SEDRATE) 32 mm/hr (0-30)
[2019-12-19 07:10] VITALS: BP 124/72
[2019-12-19 16:00] VITALS: BP 120/69
--- NOTE | 2019-12-19 17:15 | NUR ---
pt remained alert and oriented. bowel prep started npo after midnight. fall risk precautions in place. hourly rounding completed. will continue to monitor.
[2019-12-19 19:45] VITALS: BP 132/85
[2019-12-20 04:06] LABS: ABSOLUTE EOSINOPHILS 0.1 thou/uL (0.0-0.7); ABSOLUTE LYMPHOCYTES 1.4 thou/uL (0.8-5.3); ABSOLUTE MONOCYTES 0.4 thou/uL (0.0-1.2); ABSOLUTE NEUTROPHILS 3.9 thou/uL (1.6-8.1); BASOPHILS 0.7 %; EOSINOPHILS 2.2 %; HEMATOCRIT 23.7 % (37.0-47.0); HEMOGLOBIN 8.2 gm/dL (12.0-15.0); LYMPHOCYTES 23.9 %; MCH 33.3 pg (26.0-34.0); MCHC 34.6 g/dL (28.0-37.0); MCV 96.3 fL (80.0-100.0); MONOCYTES 7.2 %; NUCLEATED RBCS 0 /100WBC; PLATELET COUNT* 257 thou/uL (150-400); RBC 2.46 mil/uL (4.20-5.00); RDW-CV 15.6 % (10.5-14.5); WBC 5.9 thou/uL (4.0-11.0)
[2019-12-20 04:25] LABS: PROTIME 10.2 Seconds (9.20-11.50)
[2019-12-20 04:26] LABS: CALCIUM 8.2 mg/dL (8.5-10.1); CREATININE 1.7 mg/dL (0.6-1.3); POTASSIUM 3.8 mmol/L (3.5-5.1)
--- NOTE | 2019-12-20 04:40 | NUR ---
PATIENT HAS REMAINED ALERT AND ORIENTED X 4 THROUGHOUT THE SHIFT AND RESTING QUIETLY ON HOURLY ROUNDS. UP INDEPENDENTLY IN THE ROOM. BOWEL PREP COMOPLETED WITH RETURN TRANSPARENT & WATERY. MEDICATED FOR SLEEP PER PATIENT REQUEST. VITAL SIGNS STABLE. NPO AT MIDNIGHT. PRE-OP ROUTINES IN PROGRESS. CONTINUE TO MONITOR.
[2019-12-20 07:20] VITALS: BP 116/80
--- NOTE | 2019-12-20 09:51 | NUR ---
PT RETURNED FROM PROCEDURE. PT C/O ABD DISCOMFORT. PAIN MEDS GIVEN IN PACU. FLUIDS STARTED. PT RESTING IN BED. DIET ORDERED. FALL RISK PRECAUTIONS IN PLACE. HOURLY ROUNDING COMPLETED. WILL CONTINUE TO MONITOR.
--- NOTE | 2019-12-20 10:41 | CON ---
[address] [address] CONSULTATION Name: SATISH FENTON Room: [address] IN M.R.#: [id number] Admission: 12/17/19 Attend Phys: Kristin Llanos Discharge: Date of : 61 Report #: [id number] THIS REPORT FOR: //name// cc: Fran Kelly MD, David L. MD ~ THIS REPORT FOR: //name// CC: Fran Samuels MD [facility] Fran Shay DO Flakito Simpson DO REASON FOR CONSULTATION: Anemia. HISTORY OF PRESENT ILLNESS: The patient is a very pleasant 54-year-old lady who is disabled, who used to be in the [employer] who has no prior history of anemia. Note that in the chart, her records from June showed a normal hemoglobin at that time of approximately 12.9. In October, it was 10.1 and 10.9 and then on 12/16 of 7.8, so it may have been dropping for a while in retrospect. Hemoglobin was transfused and she is currently 8.4. Note that during the same time, white count was normal at either 5 or 7 with a normal differential. MCV stable at around 99, previous had been 95, platelet count 260. Differential mostly normal. Also note during the same time, chemistries are notable for creatinine of 1.7, though in the past she has bounced around between 1, 1.2, 1.5. Transaminases were normal. Bilirubin was normal. Albumin is 3.0. TSH in the past had been elevated, not checked this admit. Iron after 1 unit transfusion 99, TIBC 330, percent saturation 32%, ferritin 28. Soluble transferrin receptor assay is pending. Folate slightly low at 5.9. Vitamin B12 low in the normal of 288. Erythropoietin I ordered is pending. In the past has been tested for hepatitis A, B and C. Coags this admit were normal. C-reactive protein 2.0. Sed rate 32. Note that retic count is pending that I ordered. UA was nitrite positive, but also contaminant, also did have 11-20 moderate cells, but it may again from contamination. Imaging done, this included a chest x-ray, which showed no acute changes. Back in June, she had CTA and CT chest, CT abdomen and pelvis that is when they described resolution of small emboli identified in the past, which I believe had been from 06/06/2019. CT abdomen and pelvis showed a small sliding hiatal hernia, prior hysterectomy and a tiny umbilical hernia. REVIEW OF SYSTEMS: The patient has occasional headache that may be related to her syrinx that she has. No new vision troubles as long as she wears her glasses. No mouth sores. No swallowing troubles. No sinus difficulties. No gum or teeth difficulty. She is not aware of any blood in [place] [address] CONSULTATION Name: SATISH FENTON Room: [address] ADM IN .R.#: [id number] Admission: 12/17/19 Attend Phys: Kristin Llanos Discharge: Date of : 61 Report #: [id number] No change in bowel habits. No diarrhea, no constipation, no dysuria. No ankle or arm swelling. No skin rashes. She does have tattoos. MEDICATIONS: Here in the hospital currently include losartan 25 daily, hydralazine 10 p.r.n., ceftriaxone daily, clonidine 0.2 mg b.i.d.; Xanax 1 mg q.i.d., temazepam 30 mg at bedtime p.r.n., Tylenol p.r.n., quetiapine 200 mg at bedtime. PAST MEDICAL HISTORY: Notable for the history of chronic kidney disease, stage 3; anxiety; pulmonary embolism, I believe, in 05/2019; post-traumatic stress disorder; bipolar disorder; schizophrenia and depression. FAMILY HISTORY: She is not aware of anyone having blood disorders. 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 SOCIAL HISTORY: Had served in the , now disabled. I think she is at [employer] down in [place]. PHYSICAL EXAMINATION: GENERAL: The patient appears her stated age. VITAL SIGNS: Height is 5 feet 6 or 167.6 cm, weight 173 pounds 5 ounces or 78.6 kilograms. Blood pressure is 124/72, O2 sat 96%, respirations 16, pulse 69, afebrile at 97. MOOD: She is alert, pleasant, conversant. NEUROLOGIC: Speech and thought pattern appear to be normal. Moving extremities. Normal patterns. LYMPHATICS: No enlarged lymph nodes in the supraclavicular, cervical, axillary region. The patient tells me that she is not aware of any breast masses, nipple discharge. BREASTS: Not done today. ABDOMEN: Slightly obese, nontender. No masses. EXTREMITIES: Without clubbing or cyanosis. SKIN: Warm and dry without unusual ecchymosis. Oropharynx has upper denture plate in place. No ecchymosis or petechiae. ASSESSMENT AND PLAN: 1. Anemia. Note that iron panel was done. Iron panel, B12 and folate were done after transfusion. Though they are likely accurate, await soluble transferrin receptor assay. We will also ask for reticulocyte count and erythropoietin level to try to tell if this is a hypo or proliferative disorder. With total bilirubin being normal, I doubt that this is a hemolysis. Agree with plans for EGD and colonoscopy. If erythropoietin inappropriately low, may benefit from production. If unclear from soluble transferrin receptor assay, may need to consider bone marrow biopsy to consider [place] [address] CONSULTATION Name: SATISH FENTON Room: [address] IN ..#: [id number] Admission: 12/17/19 Attend Phys: Kristin Llanos Discharge: Date of : 61 Report #: [id number] For now, agree with holding anticoagulant. 2. History of pulmonary emboli in May. Agree with holding Xarelto, but use of Lovenox ____ whether she has a bleeding as a cause of her anemia. 3. Hypertension. Continue meds. 4. Bipolar and schizophrenia. Meds per others. 5. Chronic kidney disease. Monitor Meds per others. We will follow with you. 6. Urinary tract infection. Agree with antibiotics and close monitoring. <ELECTRONICALLY SIGNED> By: Sotero Villavicencio MD 12/20/19 1041 0941 [id number] dunia Robison
[2019-12-20 11:32] VITALS: BP 116/80
--- NOTE | 2019-12-20 14:20 | NUR ---
PT REMAINED ALERT AND ORIENTED. PT RESTING IN BED. PT TOLERATING FOOD. NO COMPLAINTS, CONCERNS, OR QUESTIONS AT THIS TIME. FALL RISK PRECAUTIONS IN PLACE. HOURLY ROUNDING COMPLETED. WILL CONTINUE TO MONITOR.
[2019-12-20 16:00] VITALS: BP 131/74
[2019-12-21 00:10] VITALS: BP 103/61
--- NOTE | 2019-12-21 05:02 | NUR ---
PATIENT HAS REMAINED ALERT AND ORIENTED X 4 THROUGHOUT THE SHIFT AND RESTING QUIETLY ON HOURLY ROUNDS. UP INDEPENDENTLY IN THE ROOM. GENERALIZED GASTRIC DISCOMFORT WHICH SUBSIDED AFTER A SNACK. PATIENT ANTICIPATING DISCHARGE HOME TODAY. VITAL SIGNS STABLE. CONTINUE TO MONITOR.
[2019-12-21 07:40] VITALS: BP 132/78
[2019-12-21 09:14] VITALS: BP 132/78
--- NOTE | 2019-12-21 10:25 | NUR ---
ASSUMED CARE OF PATIENT AT APPROX 0730. ALERT AND OREINTED X4. ASSESSMENT COMPLETED AND CHARTED. VSS ON ROOM AIR. NO COMPLAINTS OF PAIN, SOA OR NAUSEA. PATIENT UP AD ROBERTH IN THE ROOM. PATIENT DISCHARGED TO HOME AT 1020 WITH ALL PERSONAL BELONGINGS AND DISCHARGE INFORMATION.
--- NOTE | 2019-12-24 13:35 | CON ---
[address] [address] CONSULTATION Name: SATISH FENTON Room: [address] IN M.R.#: [id number] Admission: 12/17/19 Attend Phys: Kristin Llanos Discharge: 12/21/19 Date of : 61 Report #: [id number] THIS REPORT FOR: //name// cc: Fran Kelly MD, David L. MD ~ THIS REPORT FOR: //name// CC: Marisabel Simpson DO DATE OF SERVICE: 12/18/2019 REFERRING PHYSICIAN: Dr. Simpson. REASON FOR CONSULTATION: Anemia. IMPRESSION: 1. Anemia of uncertain etiology and significance. 2. Chronic kidney disease, stage 3. 3. Personal history of colon polyps with last examination being performed in 2013. 4. Recently diagnosed pulmonary embolism in 06/2019 requiring Xarelto. RECOMMENDATIONS: 1. We will give the patient renal diet today and begin bowel preparation over the next couple of days. 2. We will proceed with upper and lower endoscopy on Saturday. 3. We will hold the patient's Xarelto at this point in time, but it is okay to give the patient Lovenox shots today and tomorrow until tomorrow night if necessary for recently diagnosed PE, but no Lovenox shots on the morning of her procedure. 4. We will also consult Hematology for anemia since it appeared to be more of anemia of chronic disease. I have discussed the plans with the problem as well and she is agreeable to the same. HISTORY OF PRESENT ILLNESS: The patient is a very pleasant 54-year-old white female who was admitted to hospital with complaints of severe fatigue and listlessness. She was sent to the Emergency Room by Dr. Mccollum because her hemoglobin was only 6.9. She denies any complaints referable to her upper or lower GI tract including any complaints of dysphagia, odynophagia, chronic reflux or postprandial pain. She denies any problem with her bowels or bowel frequency. She has tendency towards constipation. She has undergone endoscopic studies of her lower GI tract in the past, last of which was several years ago, [place] [address] CONSULTATION Name: SATISH FENTON Room: [address]#: [id number] Admission: 12/17/19 Attend Phys: Kristin Llanos Discharge: 12/21/19 Date of : 61 Report #: [id number] but she does not recall where that was done. She is admitted to the hospital for further evaluation and treatment. ALLERGIES: MULTIPLE AND INCLUDE CARBAMAZEPINE, THORAZINE, LITHIUM, PENICILLIN, PREGABALIN, HALDOL, INFLUENZA, RISPERIDONE, SULFA, KETOROLAC, NONSTEROIDALS, TRAMADOL AND VALPROIC ACID. MEDICATIONS: At home include clonidine, losartan, temazepam, Seroquel, Xarelto, and Xanax. PAST MEDICAL HISTORY: Remarkable for hypertension. She has history of anxiety, depression, history of PE, history of a left nephrectomy as she donated one of her kidneys to her cousin. She has a history of tardive dyskinesia, the details of which are not known. She had hernia repair, cholecystectomy, hysterectomy. She had bouts of diverticulitis in the past as well. She has had previous colon polyps as well. She was diagnosed with a PE in 06/2019. She also has chronic kidney disease. SOCIAL HISTORY: She quit smoking over a year ago, does not drink alcohol. FAMILY HISTORY: Negative. PHYSICAL EXAMINATION: GENERAL: A 54-year-old white female who is pale. CARDIOPULMONARY: Revealed a regular rate and rhythm. LUNGS: Clear. ABDOMEN: Soft and not tender. No rebound or guarding noted. LABORATORY DATA: Revealed a white count of 5.8, hemoglobin 8.5, hemoglobin 258,000, MCV is 95.9 and RDW of 16.7. Her sodium 143, potassium 3.9, chloride is 108, bicarbonate is 26, her BUN is 16, creatinine 1.8 for GFR of only 29. Bilirubin 0.2, alkaline phosphatase 119, AST 17, ALT 19, her albumin is 3.6. By comparison, the patient's hemoglobin in April this year was 10.[address] scan of the abdomen and pelvis without contrast in 04/2019 revealed a small sliding hiatal hernia. There was some residual oral contrast and food within her stomach. There is no evidence for obstruction. She had a moderate amount of stool in the proximal half of the colon and also in the distal colon. DISCUSSION: At the present time, the patient has had some issues with anemia of uncertain etiology. We would recommend the patient to undergo endoscopic [address] [place] [address] CONSULTATION Name: SATISH FENTON Room: M.103-P DIS IN M.R.#: [id number] Admission: 12/17/19 Attend Phys: Kristin Llanos Discharge: 12/21/19 Date of : 61 Report #: [id number] studies. We will proceed with the same. I will make further recommendations thereafter. We will also ask Hematology to see the patient for consultation. <ELECTRONICALLY SIGNED> By: Candelario Shay DO 12/24/19 1335 1829 [id number] Shay DO /nt
--- NOTE | 2019-12-24 15:09 | PATH ---
[facility] [address] [place] [address] PATHOLOGY RPT PROCEDURE Name: SATISH FENTON Room: [address] IN M.R.#: [id number] Admission: 12/17/19 Date of : 61 Discharge: 12/21/19 Report #: [id number] Path Case #: [id number] [facility] Accession Number: [id number] . 01 Material submitted: . PART A: cecum - CECAL POLYP PART B: colon - PROXIMAL TRANSVERSE COLON POLYP. Modifiers: transverse, proximal . 02 Diagnosis: A. Cecal polyp: - Tubular adenoma, negative for high-grade dysplasia. . B. Proximal transverse colon polyp: - Tubular adenoma, negative for high-grade dysplasia. . (CARLOS ALBERTO:simona; 12/24/2019) MBGinger 12/24/2019 1305 Local . 02 Electronically signed: . Tyler Reyes MD, Pathologist NPI- [id number] . 01 Gross description: . A. The specimen is received in formalin labeled "Satish Fenton, cecal polyp" and consists of 2 fragments of gonzalez tissue measuring 0.8 x 0.4 x 0.3 cm in aggregate which are entirely submitted in A1. . B. The specimen is received in formalin labeled "Satish Fenton, proximal transverse colon polyp" and consists of a polypoid segment of yellow-gonzalez tissue measuring 1.7 x 0.3 x 0.2 cm. The margin is inked. It is bisected and entirely submitted in B1. ([facility]; 12/23/2019) JFQ/JFQ 12/23/2019 1548 Local . 02 Pathologist provided ICD-10: D12.0, D12.3 . 02 CPT . 538714, 595483 Specimen Comment: A courtesy copy of this report has been sent to [phone] Specimen Comment: Report sent to Performed at: [address] [id number] MD Deni Guidry MD Phone: [phone] Performed at: [address] [place] [address] PATHOLOGY RPT PROCEDURE Name: SATISH FENTON Room: [address]#: [id number] Admission: 12/17/19 Date of : 61 Discharge: 12/21/19 Report #: [id number] Path Case #: [id number] [address] MEGGAN Dixon [id number] MD Tyler Reyes MD Phone: [phone]
--- NOTE | 2019-12-25 12:46 | NUR ---
P2P on 12/24/2019. Dr Sujatha CASTILLO MD [facility] would not approve Inpatient LOC/rate but stated the case can be billed as Observation LOC/rate. 4 Days Inpatient Stay DENIED. Ref# [id number].
== END 2019-12-21 10:20 | disposition home or self-care (01) | DRG 377 ==
LOC: M.ERS 13:32 → M.ORTHSURG 14:39 → M.TBA-ER 14:39 → M.ORTHSURG 17:15
PROVIDERS: Emergency Medicine; Internal Medicine; ADMIT Internal Medicine
PROC: 30233N1 Transfusion of Nonautologous Red Blood Cells into Peripheral Vein, Percutaneous Approach (ICD-10-PCS; principal; 2019-12-17)
PROC: 0DJ08ZZ Inspection of Upper Intestinal Tract, Via Natural or Artificial Opening Endoscopic (ICD-10-PCS; 2019-12-20)
PROC: 0DBL8ZX Excision of Transverse Colon, Via Natural or Artificial Opening Endoscopic, Diagnostic (ICD-10-PCS; 2019-12-20)
PROC: 0DBH8ZX Excision of Cecum, Via Natural or Artificial Opening Endoscopic, Diagnostic (ICD-10-PCS; 2019-12-20)
DX: K92.2 Gastrointestinal hemorrhage, unspecified (principal); N17.0 Acute kidney failure with tubular necrosis; N39.0 Urinary tract infection, site not specified; N18.4 Chronic kidney disease, stage 4 (severe); D62 Acute posthemorrhagic anemia; I16.1 Hypertensive emergency; G24.01 Drug induced subacute dyskinesia; D12.0 Benign neoplasm of cecum; F32.9 Major depressive disorder, single episode, unspecified; I12.9 Hypertensive chronic kidney disease with stage 1 through stage 4 chronic kidney disease, or unspecified chronic kidney disease; F25.0 Schizoaffective disorder, bipolar type; T45.515A Adverse effect of anticoagulants, initial encounter; F43.10 Post-traumatic stress disorder, unspecified; E03.9 Hypothyroidism, unspecified; Z87.891 Personal history of nicotine dependence; K57.90 Diverticulosis of intestine, part unspecified, without perforation or abscess without bleeding; Z90.5 Acquired absence of kidney; Z90.49 Acquired absence of other specified parts of digestive tract; Z90.710 Acquired absence of both cervix and uterus; Z87.01 Personal history of pneumonia (recurrent); Z86.711 Personal history of pulmonary embolism; Z88.1 Allergy status to other antibiotic agents; Z88.0 Allergy status to penicillin; Z88.2 Allergy status to sulfonamides; Z88.7 Allergy status to serum and vaccine; Z88.8 Allergy status to other drugs, medicaments and biological substances; Z79.899 Other long term (current) drug therapy; Z79.01 Long term (current) use of anticoagulants

== ENCOUNTER → 2020-01-11 | Outpatient (CLI) | payer OTHER ==
[2020-01-11 10:46] LABS: ABSOLUTE BASOPHILS 0.1 thou/uL (0.0-0.2); ABSOLUTE EOSINOPHILS 0.2 thou/uL (0.0-0.7); ABSOLUTE LYMPHOCYTES 1.8 thou/uL (0.8-5.3); ABSOLUTE MONOCYTES 0.5 thou/uL (0.0-1.2); ABSOLUTE NEUTROPHILS 4.5 thou/uL (1.6-8.1); BASOPHILS 1.2 %; EOSINOPHILS 2.9 %; HEMATOCRIT 29.3 % (37.0-47.0); HEMOGLOBIN 10.1 gm/dL (12.0-15.0); LYMPHOCYTES 25.1 %; MCH 32.8 pg (26.0-34.0); MCHC 34.4 g/dL (28.0-37.0); MCV 95.5 fL (80.0-100.0); MONOCYTES 6.8 %; MPV 8.2 fl. (7.2-11.1); NUCLEATED RBCS 0 /100WBC; PLATELET COUNT* 253 thou/uL (150-400); RBC 3.07 mil/uL (4.20-5.00); RDW-CV 14.1 % (10.5-14.5)
== END ==
LOC: M.LAB 10:30
PROVIDERS: ATTEND Internal Medicine
DX: N18.9 Chronic kidney disease, unspecified (principal); D63.1 Anemia in chronic kidney disease

== ENCOUNTER → 2020-12-14 | Outpatient (CLI) | payer OTHER | LOC: M.RAD 12:31 | PROVIDERS: ATTEND Internal Medicine Nephrology | DX: N18.32 Chronic kidney disease, stage 3b (principal) ==

== ENCOUNTER → 2021-01-12 | Outpatient (CLI) | payer OTHER | LOC: M.RAD 10:15 | PROVIDERS: ATTEND Internal Medicine Critical Care Medicine | DX: R06.02 Shortness of breath (principal) ==

== ENCOUNTER 2021-01-31 12:10 | Emergency (ER) | payer OTHER ==
[~2021-01-31] VITALS: Ht 165.1 cm; Wt 77.1 kg
[2021-01-31] MEDS ORDERED: ZESTRIL20 MG PO (12:23)
[2021-01-31] MEDS ORDERED: VENTOLIN HFA INH8 GM INH (12:24)
[2021-01-31] MEDS ORDERED: BREO ELLIPTA 21 EACH INH (12:24)
[2021-01-31] MEDS ORDERED: ALBUTEROL2.5 MG/31 INH (12:24)
[2021-01-31 13:00] LABS: ABSOLUTE BASOPHILS 0.1 thou/uL (0.0-0.2); ABSOLUTE EOSINOPHILS 0.1 thou/uL (0.0-0.7); ABSOLUTE LYMPHOCYTES 1.4 thou/uL (0.8-5.3); ABSOLUTE MONOCYTES 0.6 thou/uL (0.0-1.2); ABSOLUTE NEUTROPHILS 5.8 thou/uL (1.6-8.1); EOSINOPHILS 1.2 %; HEMATOCRIT 38.8 % (37.0-47.0); HEMOGLOBIN 13.6 gm/dL (12.0-15.0); LYMPHOCYTES 17.3 %; MCH 33.7 pg (26.0-34.0); MCV 96.3 fL (80.0-100.0); MONOCYTES 7.6 %; MPV 8.4 fl. (7.2-11.1); NUCLEATED RBCS 0 /100WBC; PLATELET COUNT* 208 thou/uL (150-400); POLYS 72.9 %; RBC 4.03 mil/uL (4.20-5.00); RDW-CV 14.5 % (10.5-14.5); WBC 7.9 thou/uL (4.0-11.0)
[2021-01-31 13:12] LABS: CALCIUM 8.8 mg/dL (8.5-10.1); CREATININE 1.4 mg/dL (0.6-1.3)
[2021-01-31 13:24] LABS: ALBUMIN 3.5 g/dL (3.4-5.0); CK-MB MASS 0.8 ng/mL (<0.5-3.6); MAGNESIUM 1.9 mg/dL (1.8-2.4); TOTAL BILIRUBIN 0.2 mg/dL (<0.1-1.0)
[2021-01-31 15:17] VITALS: BP 123/76
--- NOTE | 2021-01-31 16:41 | EKG ---
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: [facility] [place] : 1965 Requested By: Sotero Tian Order Number: [id number] MD: Michael Stokes Measurements Intervals [place] Rate: 94 P: 48 GA: 222 QRS: 63 QRSD: 94 T: 98 QT: 393 QTc: 492 Interpretive Statements Sinus rhythm Abnormal T, consider ischemia, lateral leads Compared to ECG 12/17/2019 13:59:03 First degree AV block now present Possible ischemia now present T-wave abnormality still present Electronically Signed On 01-31-2021 16:41:06 CDT by Michael Stokes [email or web address] <ELECTRONICALLY SIGNED> By: Michael Stokes MD, FACC 01/31/21 1641 1215 1215 Michael Stokes MD, [facility] /EPI
== END 2021-01-31 15:18 | disposition home or self-care (01) ==
LOC: M.ERS 12:10
PROVIDERS: Emergency Medicine
DX: R07.89 Other chest pain (principal); J44.9 Chronic obstructive pulmonary disease, unspecified; N18.30 Chronic kidney disease, stage 3 unspecified; F17.210 Nicotine dependence, cigarettes, uncomplicated; Z88.0 Allergy status to penicillin; Z88.7 Allergy status to serum and vaccine; Z88.2 Allergy status to sulfonamides; Z88.6 Allergy status to analgesic agent; Z88.8 Allergy status to other drugs, medicaments and biological substances; Z90.49 Acquired absence of other specified parts of digestive tract; Z90.710 Acquired absence of both cervix and uterus; Z87.01 Personal history of pneumonia (recurrent); Z90.89 Acquired absence of other organs; Z86.711 Personal history of pulmonary embolism

== ENCOUNTER → 2021-03-09 | Outpatient (CLI) | payer OTHER ==
[~2021-03-09] MED LIST changes: +ALBUTEROL2.5 MG/31 INH; +BREO ELLIPTA 21 EACH INH; +VENTOLIN HFA INH8 GM INH; +ZESTRIL20 MG PO
== END ==
LOC: M.PC 10:48
PROVIDERS: ATTEND Anesthesiology Pain Medicine
DX: G24.01 Drug induced subacute dyskinesia (principal); F32.9 Major depressive disorder, single episode, unspecified; K57.32 Diverticulitis of large intestine without perforation or abscess without bleeding; J18.9 Pneumonia, unspecified organism; N28.9 Disorder of kidney and ureter, unspecified; N18.30 Chronic kidney disease, stage 3 unspecified; J44.9 Chronic obstructive pulmonary disease, unspecified

== ENCOUNTER 2021-04-13 10:05 | Emergency (ER) | payer OTHER ==
[~2021-04-13] VITALS: Ht 165.1 cm; Wt 77.1 kg
[2021-04-13 12:21] LABS: ABSOLUTE LYMPHOCYTES 1.6 thou/uL (0.8-5.3); ABSOLUTE NEUTROPHILS 5.3 thou/uL (1.6-8.1)
[2021-04-13 12:23] LABS: ABSOLUTE BASOPHILS 0.1 thou/uL (0.0-0.2); ABSOLUTE EOSINOPHILS 0.3 thou/uL (0.0-0.7); ABSOLUTE MONOCYTES 0.8 thou/uL (0.0-1.2); BASOPHILS 0.8 %; EOSINOPHILS 4.2 %; HEMATOCRIT 43.1 % (37.0-47.0); HEMOGLOBIN 14.5 gm/dL (12.0-15.0); LYMPHOCYTES 20.1 %; MCH 33.3 pg (26.0-34.0); MCHC 33.7 g/dL (28.0-37.0); MCV 98.7 fL (80.0-100.0); MONOCYTES 9.5 %; MPV 9.5 fl. (7.2-11.1); NUCLEATED RBCS 0 /100WBC; PLATELET COUNT* 211 thou/uL (150-400); POLYS 65.4 %; RBC 4.36 mil/uL (4.20-5.00); RDW-CV 12.5 % (10.5-14.5); WBC 8.1 thou/uL (4.0-11.0)
[2021-04-13 12:50] LABS: ALBUMIN 3.8 g/dL (3.4-5.0); TOTAL PROTEIN 6.8 g/dL (6.4-8.2)
[2021-04-13 13:00] LABS: CALCIUM 8.7 mg/dL (8.5-10.1); CREATININE 1.2 mg/dL (0.6-1.3); POTASSIUM 5.3 mmol/L (3.5-5.1); TOTAL BILIRUBIN 0.4 mg/dL (<0.1-1.0)
--- NOTE | 2021-04-13 13:27 | EKG ---
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: : 1965 Requested By: Rachid Ann Order Number: [id number] MD: Fran Samuels Measurements Intervals [place] Rate: 82 P: 23 OR: 151 QRS: 57 QRSD: 103 T: 53 QT: 403 QTc: 471 Interpretive Statements Sinus rhythm Probable left atrial enlargement septal infarct, age indeterminate Compared to ECG 01/31/2021 12:15:43 Myocardial infarct finding now present T-wave abnormality no longer present Possible ischemia no longer present Electronically Signed On 04-13-2021 13:27:22 CDT by Fran Samuels [email or web address] <ELECTRONICALLY SIGNED> By: Fran Samuels MD, [facility] 04/13/21 1327 1147 1147 Fran Samuels MD, [facility] /EPI
[2021-04-13] MEDS ORDERED: PROMETHAZI6.25 MG/5 PO (14:13)
[2021-04-13] MEDS ORDERED: PREDNISONE 20 M20 MG PO (14:13)
[2021-04-13] MEDS ORDERED: NEBULIZER MISCELL (14:13)
[2021-04-13] MEDS ORDERED: DORYX MPC120 MG PO (14:13)
[2021-04-13] MEDS ORDERED: TESSALON PERLE100 MG PO (14:13)
[2021-04-13] MEDS ORDERED: ALBUTEROL2.5 MG/31 INH (14:13)
[2021-04-13 14:24] VITALS: BP 142/75
[2021-04-18] MEDS ORDERED: HYDROCODON-ACE1 EAC7 PO (11:37)
== END 2021-04-13 14:25 | disposition home or self-care (01) ==
LOC: M.ERS 10:05
PROVIDERS: Physician Assistant
DX: J18.9 Pneumonia, unspecified organism (principal); Z20.822 Contact with and (suspected) exposure to COVID-19; J44.1 Chronic obstructive pulmonary disease with (acute) exacerbation; F32.9 Major depressive disorder, single episode, unspecified; N18.30 Chronic kidney disease, stage 3 unspecified; Z90.710 Acquired absence of both cervix and uterus; Z90.89 Acquired absence of other organs; Z79.899 Other long term (current) drug therapy; Z90.49 Acquired absence of other specified parts of digestive tract; Z88.0 Allergy status to penicillin; Z88.2 Allergy status to sulfonamides; Z88.6 Allergy status to analgesic agent; Z88.5 Allergy status to narcotic agent; Z88.8 Allergy status to other drugs, medicaments and biological substances; F17.210 Nicotine dependence, cigarettes, uncomplicated

== ENCOUNTER → 2021-04-18 | Outpatient (CLI) | payer OTHER ==
[~2021-04-18] MED LIST changes: +NEBULIZER MISCELL; +PROMETHAZI6.25 MG/5 PO
== END ==
LOC: M.PC 04-06 08:30
PROVIDERS: ATTEND Anesthesiology Pain Medicine
DX: R07.89 Other chest pain (principal); G24.01 Drug induced subacute dyskinesia; K57.92 Diverticulitis of intestine, part unspecified, without perforation or abscess without bleeding; N28.9 Disorder of kidney and ureter, unspecified; N18.30 Chronic kidney disease, stage 3 unspecified; J44.9 Chronic obstructive pulmonary disease, unspecified; F34.9 Persistent mood [affective] disorder, unspecified; Z90.5 Acquired absence of kidney; Z90.49 Acquired absence of other specified parts of digestive tract; Z90.710 Acquired absence of both cervix and uterus; Z88.8 Allergy status to other drugs, medicaments and biological substances; Z79.899 Other long term (current) drug therapy

== ENCOUNTER → 2021-05-16 | Outpatient (CLI) | payer OTHER ==
[~2021-05-16] MED LIST changes: +DOXYCYCLINE 10100 MG PO; +PROMETHAZINE V120 ML PO; +VICODIN HP 10-1 EAC1 PO
== END ==
LOC: M.PC 11:08
PROVIDERS: ATTEND Anesthesiology Pain Medicine
DX: R07.89 Other chest pain (principal); G24.01 Drug induced subacute dyskinesia; K57.92 Diverticulitis of intestine, part unspecified, without perforation or abscess without bleeding; N28.9 Disorder of kidney and ureter, unspecified; N18.30 Chronic kidney disease, stage 3 unspecified; J44.9 Chronic obstructive pulmonary disease, unspecified; F34.89 Other specified persistent mood disorders; Z90.5 Acquired absence of kidney; Z90.49 Acquired absence of other specified parts of digestive tract; Z88.0 Allergy status to penicillin; Z88.8 Allergy status to other drugs, medicaments and biological substances; Z79.899 Other long term (current) drug therapy

== ENCOUNTER 2021-05-27 11:54 | Emergency (ER) | payer OTHER ==
[~2021-05-27] VITALS: Ht 165.1 cm; Wt 77.1 kg
[~2021-05-27 11:54] MED LIST changes: -DOXYCYCLINE 10100 MG PO; -PROMETHAZINE V120 ML PO; -VICODIN HP 10-1 EAC1 PO
[2021-05-27] MEDS ORDERED: VICODIN HP 10-1 EAC1 PO (12:13)
[2021-05-27 12:36] LABS: INFLUENZA A ANTIGEN Negative (Negative); INFLUENZA B ANTIGEN Negative (Negative)
[2021-05-27 12:43] LABS: ABSOLUTE BASOPHILS 0.1 thou/uL (0.0-0.2); ABSOLUTE EOSINOPHILS 0.1 thou/uL (0.0-0.7); ABSOLUTE LYMPHOCYTES 1.6 thou/uL (0.8-5.3); ABSOLUTE MONOCYTES 0.4 thou/uL (0.0-1.2); BASOPHILS 1.3 %; HEMATOCRIT 40.5 % (37.0-47.0); HEMOGLOBIN 13.9 gm/dL (12.0-15.0); LYMPHOCYTES 25.8 %; MCH 33.3 pg (26.0-34.0); MCHC 34.3 g/dL (28.0-37.0); MCV 97.1 fL (80.0-100.0); MONOCYTES 7.1 %; MPV 8.3 fl. (7.2-11.1); NUCLEATED RBCS 0 /100WBC; PLATELET COUNT* 199 thou/uL (150-400); POLYS 63.8 %; RBC 4.17 mil/uL (4.20-5.00); RDW-CV 12.7 % (10.5-14.5); WBC 6.3 thou/uL (4.0-11.0)
[2021-05-27 12:56] LABS: CALCIUM 8.9 mg/dL (8.5-10.1); CREATININE 1.3 mg/dL (0.6-1.3)
[2021-05-27 13:28] VITALS: BP 143/85
--- NOTE | 2021-05-27 13:28 | EKG ---
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: : 1965 Requested By: Robin Nelson Order Number: [id number] MD: Michael Stokes Measurements Intervals [place] Rate: 74 P: 39 RI: 170 QRS: 49 QRSD: 104 T: 53 QT: 360 QTc: 400 Interpretive Statements Sinus rhythm Low voltage, precordial leads Borderline T abnormalities, anterior leads Baseline wander in lead(s) II,III,aVF Compared to ECG 04/13/2021 11:47:54 Low QRS voltage now present T-wave abnormality now present Myocardial infarct finding no longer present Electronically Signed On 05-27-2021 13:27:58 CDT by Michael Stokes [email or web address] <ELECTRONICALLY SIGNED> By: Michael Stokes MD, FACC 05/27/21 1327 1224 1224 Michael Stokes MD, FACC /EPI
== END 2021-05-27 13:32 | disposition home or self-care (01) ==
LOC: M.ERS 11:54
PROVIDERS: Nurse Practitioner Psychiatric/Mental Health
DX: J20.9 Acute bronchitis, unspecified (principal); Z20.822 Contact with and (suspected) exposure to COVID-19; J44.0 Chronic obstructive pulmonary disease with (acute) lower respiratory infection; I10 Essential (primary) hypertension; F32.9 Major depressive disorder, single episode, unspecified; N18.30 Chronic kidney disease, stage 3 unspecified; Z90.89 Acquired absence of other organs; Z98.890 Other specified postprocedural states; Z90.711 Acquired absence of uterus with remaining cervical stump; Z90.49 Acquired absence of other specified parts of digestive tract; Z86.711 Personal history of pulmonary embolism; Z79.2 Long term (current) use of antibiotics; Z79.899 Other long term (current) drug therapy; Z88.8 Allergy status to other drugs, medicaments and biological substances; Z88.0 Allergy status to penicillin; Z88.2 Allergy status to sulfonamides; Z88.6 Allergy status to analgesic agent

== ENCOUNTER 2021-05-30 11:29 | Emergency (ER) | payer OTHER ==
[~2021-05-30] VITALS: Ht 165.1 cm; Wt 77.1 kg
[~2021-05-30 11:29] MED LIST changes: +VICODIN HP 10-1 EAC1 PO
[2021-05-30 12:09] LABS: ABSOLUTE BASOPHILS 0.1 thou/uL (0.0-0.2); ABSOLUTE EOSINOPHILS 0.1 thou/uL (0.0-0.7); ABSOLUTE LYMPHOCYTES 2.3 thou/uL (0.8-5.3); ABSOLUTE MONOCYTES 0.6 thou/uL (0.0-1.2); ABSOLUTE NEUTROPHILS 4.6 thou/uL (1.6-8.1); BASOPHILS 1.2 %; EOSINOPHILS 1.3 %; HEMATOCRIT 43.2 % (37.0-47.0); HEMOGLOBIN 14.7 gm/dL (12.0-15.0); MCH 33.1 pg (26.0-34.0); MCHC 34.1 g/dL (28.0-37.0); MONOCYTES 7.2 %; MPV 8.3 fl. (7.2-11.1); NUCLEATED RBCS 0 /100WBC; PLATELET COUNT* 217 thou/uL (150-400); POLYS 60.3 %; RBC 4.45 mil/uL (4.20-5.00); RDW-CV 12.9 % (10.5-14.5); WBC 7.7 thou/uL (4.0-11.0)
[2021-05-30 12:20] LABS: CALCIUM 8.9 mg/dL (8.5-10.1); CREATININE 1.3 mg/dL (0.6-1.3)
[2021-05-30 12:32] LABS: ALBUMIN 3.6 g/dL (3.4-5.0); TOTAL BILIRUBIN 0.2 mg/dL (<0.1-1.0); TOTAL PROTEIN 6.9 g/dL (6.4-8.2)
[2021-05-30] MEDS ORDERED: DOXYCYCLINE 10100 MG PO (13:38)
[2021-05-30] MEDS ORDERED: PROMETHAZINE V120 ML PO (13:38)
[2021-05-30] MEDS ORDERED: PREDNISONE 10 M10 MG PO (13:38)
[2021-05-30 14:02] VITALS: BP 134/80
--- NOTE | 2021-06-01 08:03 | EKG ---
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 ALICE : 1965 Requested By: Briana Shoemaker Order Number: [id number] MD: Michael Stokes Measurements Intervals [place] Rate: 90 P: 39 ID: 144 QRS: 43 QRSD: 81 T: 46 QT: 347 QTc: 425 Interpretive Statements Sinus rhythm Inferior Q waves noted Inferior infarct, old, possible Borderline T abnormalities, anterior leads Compared to ECG 05/27/2021 12:24:23 No significant changes Electronically Signed On 06-01-2021 8:03:04 CDT by Michael Stokes [email or web address] <ELECTRONICALLY SIGNED> By: Michael Stokes MD, FACC 06/01/21 0803 1150 1150 Michael Stokes MD, FAC /EPI
== END 2021-05-30 14:02 | disposition home or self-care (01) ==
LOC: M.ERS 11:29
PROVIDERS: Nurse Practitioner Family
DX: J44.1 Chronic obstructive pulmonary disease with (acute) exacerbation (principal); Z20.822 Contact with and (suspected) exposure to COVID-19; J20.9 Acute bronchitis, unspecified; F32.9 Major depressive disorder, single episode, unspecified; N18.30 Chronic kidney disease, stage 3 unspecified; Z90.89 Acquired absence of other organs; Z98.890 Other specified postprocedural states; Z90.711 Acquired absence of uterus with remaining cervical stump; Z90.49 Acquired absence of other specified parts of digestive tract; Z86.711 Personal history of pulmonary embolism; Z79.899 Other long term (current) drug therapy; Z88.8 Allergy status to other drugs, medicaments and biological substances; Z88.0 Allergy status to penicillin; Z88.2 Allergy status to sulfonamides; Z88.6 Allergy status to analgesic agent

== ENCOUNTER → 2021-06-13 | Outpatient (CLI) | payer OTHER ==
[~2021-06-13] MED LIST changes: +DOXYCYCLINE 10100 MG PO; +PROMETHAZINE V120 ML PO
== END ==
LOC: M.PC 08:58
PROVIDERS: ATTEND Anesthesiology Pain Medicine
DX: G24.01 Drug induced subacute dyskinesia (principal); K57.30 Diverticulosis of large intestine without perforation or abscess without bleeding; N28.9 Disorder of kidney and ureter, unspecified; N18.30 Chronic kidney disease, stage 3 unspecified; R07.89 Other chest pain; J44.9 Chronic obstructive pulmonary disease, unspecified; F34.89 Other specified persistent mood disorders; Z90.49 Acquired absence of other specified parts of digestive tract; Z90.710 Acquired absence of both cervix and uterus; Z90.5 Acquired absence of kidney; Z88.0 Allergy status to penicillin; Z88.8 Allergy status to other drugs, medicaments and biological substances; Z79.899 Other long term (current) drug therapy

== ENCOUNTER → 2021-07-11 | Outpatient (CLI) | payer OTHER | LOC: M.PC 08:53 | PROVIDERS: ATTEND Anesthesiology Pain Medicine | DX: G24.01 Drug induced subacute dyskinesia (principal); F34.89 Other specified persistent mood disorders; K57.92 Diverticulitis of intestine, part unspecified, without perforation or abscess without bleeding; N28.9 Disorder of kidney and ureter, unspecified; N18.30 Chronic kidney disease, stage 3 unspecified; J44.9 Chronic obstructive pulmonary disease, unspecified; Z90.5 Acquired absence of kidney; Z88.0 Allergy status to penicillin; Z88.8 Allergy status to other drugs, medicaments and biological substances; Z79.899 Other long term (current) drug therapy ==

== ENCOUNTER → 2021-08-08 | Outpatient (CLI) | payer OTHER | LOC: M.PC 08:56 | PROVIDERS: ATTEND Anesthesiology Pain Medicine | DX: R07.89 Other chest pain (principal); G24.01 Drug induced subacute dyskinesia; K57.90 Diverticulosis of intestine, part unspecified, without perforation or abscess without bleeding; N28.9 Disorder of kidney and ureter, unspecified; N18.30 Chronic kidney disease, stage 3 unspecified; J44.9 Chronic obstructive pulmonary disease, unspecified; Z90.5 Acquired absence of kidney; Z88.0 Allergy status to penicillin; Z88.8 Allergy status to other drugs, medicaments and biological substances; Z79.899 Other long term (current) drug therapy ==

== ENCOUNTER → 2021-09-05 | Outpatient (CLI) | payer OTHER | LOC: M.PC 09:30 | PROVIDERS: ATTEND Anesthesiology Pain Medicine | DX: R07.89 Other chest pain (principal); G24.01 Drug induced subacute dyskinesia; K57.92 Diverticulitis of intestine, part unspecified, without perforation or abscess without bleeding; N18.2 Chronic kidney disease, stage 2 (mild); N28.9 Disorder of kidney and ureter, unspecified; J44.9 Chronic obstructive pulmonary disease, unspecified; F34.9 Persistent mood [affective] disorder, unspecified; Z88.0 Allergy status to penicillin; Z88.8 Allergy status to other drugs, medicaments and biological substances; Z79.899 Other long term (current) drug therapy; Z90.5 Acquired absence of kidney ==